=== PATIENT | female | born 1935 | race Caucasian/White ===

== ENCOUNTER 2021-08-04 08:43 | Inpatient (IN) ==
--- NOTE | 2021-08-04 08:56 | Emergency Department Note ---
History of Present Illness General Chief complaint: Stroke Alert Stated complaint: STROKE ALERT Source: EMS Mode of arrival: EMS Limitations: physical limitation (CVA) History of Present Illness Provider complaint: stroke alert This is an 86-year-old female brought in by EMS as a stroke alert. EMS reports patient's last known well was at 7 AM per family report to them. They noticed patient with slight right-sided weakness, difficulty ambulating, right facial droop and abnormal answers to questions. Patient with a prior history of a hemorrhagic stroke 5 years ago. EMS states in route patient symptoms have i mproved although she is not completely resolved. Per stroke protocol, patient taken immediately for CT imaging. Pt seen during a time of high acuity and national emergency pandemic while wearing PPE. Home Medications Medication Instructions Recorded Confirmed Type Aspir-81 81 mg PO DAILY 08/04/21 08/04/21 History Fish Oil 1 cap PO DAILY 08/04/21 08/04/21 History lisinopril 40 mg tablet 40 mg PO QAM 08/04/21 08/04/21 History metoprolol succinate 100 mg 100 mg PO QPM 08/04/21 08/04/21 History tablet,extended release 24 hr Allergies Allergy/AdvReac Type Severity Reaction Status Date / Time No Known Allergies Allergy Unverified 08/04/21 10:32 Past Med/Surg History Medical History (Updated 08/04/21 @ 21:03 by Patricia Brown DO) Hemorrhagic stroke Social History Smoking Status: Never smoker Preferred Language: Ethiopian Feels Safe at Home: Yes Review of Systems A total of 10 systems reviewed and were otherwise negative All systems reviewed & are unremarkable except as noted in HPI & below Physical Exam Vital Signs Vital Signs - 24 hr 08/04/21 08:24 08/04/21 09:24 08/04/21 09:30 Temperature 36.7 C Temperature Source Oral Pulse Rate 74 76 75 Pulse Rate from SpO2 Sensor 76 75 Pulse Rhythm Regular Pulse Strength Normal Respiratory Rate 18 18 22 Respiratory Effort / Characteristics Non-Labored Spontaneous Respiratory Depth Normal Respiratory Pattern Regular Blood Pressure 176/94 H Blood Pressure Mean 121 Blood Pressure Position Sitting Pulse Oximetry 96 95 94 Oxygen Delivery Method Room Air Sepsis Recent Fever Within 48 Hours No Sepsis New/Unexplained Change in Mental Status N/A Sepsis Action Taken by Nursing No Action Required 08/04/21 10:00 08/04/21 10:30 Temperature Temperature Source Pulse Rate 73 75 Pulse Rate from SpO2 Sensor 73 75 Pulse Rhythm Pulse Strength Respiratory Rate 15 17 Respiratory Effort / Characteristics Respiratory Depth Respiratory Pattern Blood Pressure Blood Pressure Mean Blood Pressure Position Pulse Oximetry 95 96 Oxygen Delivery Method Sepsis Recent Fever Within 48 Hours Sepsis New/Unexplained Change in Mental Status Sepsis Action Taken by Nursing GENERAL: alert, well appearing, well nourished, no distress, non-toxic EYE EXAM: normal conjunctiva, PERRL and EOM's grossly intact OROPHARYNX: no exudate, no erythema, lips, buccal mucosa, and tongue normal and mucous membranes are moist NECK: supple, no nuchal rigidity, no adenopathy, non-tender LUNGS: Clear to auscultation. Normal chest wall mechanics, no w/r/r HEART: no murmurs, S1 normal and S2 normal ABDOMEN: abdomen soft, non-tender, normo-active bowel sounds, no masses, no rebound or guarding. BACK: Back is symmetrical on inspection and there is no deformity, no midline tenderness, no CVA tenderness. SKIN: no rashes and no bruising UPPER EXTREMITIES: upper extremities are grossly normal. FROM, nml pulses b/l. LOWER EXTREMITIES: No pitting edema. FROM, nml pulses b/l. NEURO EXAM: Normal sensorium, cranial nerves II-XII grossly intact, no overt dysarthria, slight flattening yet or right nasolabial fold which medic states is improved, patient gives abnormal and repetitive answers to questions, no gross weakness of arms, no gross weakness of legs. No ataxia. Gross sensation intact. NIHSS 5. Course Course 00: Discussed with Dr. Brand, [place] [facility]. 09: Patient's daughter arrived at bedside. Confirms patient lives with her at home. Patient was up and about doing her normal routine in the morning when noticed at 7 AM that she had difficulty speaking, was giving abnormal and repetitive answers, had difficulty walking. They called 911 around 730 after calling the daughter. She confirms patient did have a small prior head bleed 4 to 5 years ago. Had full recovery and no ongoing deficits. She does not use any antiplatelet or anticoagulation therapy. 0909: Neurology now evaluating at bedside. Blood pressure is improved compared to prehospital. 09: Pt still being evaluated by neurology. Daughter at bedside. 28: After additional evaluation neurology states they feel this was most likely a TIA. He states had not seen her normal this morning to confirm and so he believes last known well was likely last night. Patient should be given an aspirin and otherwise admitted for additional monitoring and evaluation including an MRI. Patient symptoms have almost entirely resolved. This was discussed with the patient and daughter who are at bedside in addition. Patient states she did take her usual medications this morning at 6 AM. Administered Medications Sodium Chloride (Nss 1000ml) 1,000 mls @ 50 mls/hr IV .Q20H REPLACED BY [facility] Stop: 09/03/21 08:44 Last Admin: 08/04/21 09:26 Dose: 50 mls/hr Documented by: [id number] Lorazepam (Lorazepam 0.5 Mg Tab) 0.5 mg PO NOW ONE Stop: 08/04/21 21:01 Last Admin: 08/04/21 20:39 Dose: 0.5 mg Documented by: [id number] Metoprolol Succinate (Metoprolol Succ 50mg Ext Rel Tab) 100 mg PO QPM REPLACED BY [facility] Stop: 09/03/21 20:59 Last Admin: 08/04/21 20:39 Dose: 100 mg Documented by: [id number] Discontinued Medications Aspirin (Aspirin 325 Mg Ectab) 325 mg PO QAM REPLACED BY [facility] Stop: 09/03/21 09:29 Last Admin: 08/04/21 10:32 Dose: 325 mg Documented by: [id number] Ioversol (Optiray 320 125ml) 119 ml IV ONCE ONE Stop: 08/04/21 09:06 Last Admin: 08/04/21 09:06 Dose: 119 ml Documented by: [id number] Labetalol HCl (Labetalol Hcl Iv 5 Mg/Ml 20ml) 5 mg IV NOW STA Stop: 08/04/21 09:31 Last Admin: 08/04/21 10:16 Dose: 5 mg Documented by: [id number] Cosigned by: [id number] Labetalol HCl (Labetalol Hcl Iv 5 Mg/Ml 20ml) 10 mg IV NOW STA Stop: 08/04/21 11:04 Last Admin: 08/04/21 11:18 Dose: 10 mg Documented by: [id number] Cosigned by: [id number] Critical Care Time Critical Care Time: Yes Total Critical Care Time: 42 Critical care of 42 min performed to assess and manage high likelihood of life- threatening CVA, involving labs and imaging performed with assessment to evaluate 42 diagnosis with frequent reassessment. This time includes bedside time, treatment discussions with patient/family/consultants, documentation time and excludes procedure time. Medical Decision Making Differential Diagnosis Differential Diagnosis includes but is not limited to ischemic Stroke, hemorrhagic stroke, bells palsy, mass, neoplasm, migraine headache, seizure, subarachnoid hemorrhage, TIA, and transient global amnesia. Medical Records Attestation: I reviewed the patient's medical records. Home Medications Current Medication List: was personally reviewed by me Laboratory Data Attestation: I reviewed the patient's lab results. Result diagrams: 08/04/21 09:01 08/04/21 08:30 Lab Results 08/04/21 08/04/21 08/04/21 Range/Units 08:30 09:01 09:01 WBC 6.34 (4.8-10.8) K/uL RBC 4.54 (4.2-5.4) M/uL Hgb 14.7 (12.0-16.0) g/dL Hct 42.9 (37-47) % MCV 94.5 (80-100) fL MCH 32.4 (25-34) pg MCHC 34.3 (32-36) g/dL RDW Std Deviation 44.9 (36.4-46.3) fL RDW Coeff of Charline 13.0 (11.5-14.5) % Plt Count 200 (130-400) K/uL MPV 9.5 (7.4-10.4) fL Immature Gran % (Auto) 0.3 % Neut % (Auto) 60.6 % Lymph % (Auto) 26.5 % [place] % (Auto) 8.2 % Eos % (Auto) 3.6 % Baso % (Auto) 0.8 % Neut # (Auto) 3.84 (1.4-6.5) K/uL Lymph # (Auto) 1.68 (1.2-3.4) K/uL [place] # (Auto) 0.52 (0.11-0.59) K/uL Eos # (Auto) 0.23 (0-0.5) K/uL Baso # (Auto) 0.05 (0-0.2) K/uL Immature Gran # (Auto) 0.02 (0.00-0.02) K/uL PT 10.4 (9.0-12.0) Seconds INR 1.0 (0.9-1.1) APTT 22.8 (21.0-31.0) Seconds PTT Ratio 0.9 Sodium 138 (136-145) mmol/L Potassium 4.1 (3.5-5.1) mmol/L Chloride 104 (98-107) mmol/L Carbon Dioxide 25 (21-32) mmol/L Anion Gap 9.0 (3-11) BUN 20 H (7-18) mg/dl Creatinine 1.10 (0.6-1.2) mg/dl Est Cr Clr Drug Dosing 32.4 ml/min Est GFR ( Amer) 52.3 ml/min Est GFR (Non-Af Amer) 45.1 ml/min BUN/Creatinine Ratio 18.5 (10-20) Glucose 151 H (70-99) mg/dl POC Glucose (70-99) mg/dl Calcium 9.7 (8.5-10.1) mg/dl Magnesium 2.0 (1.8-2.4) mg/dl Total Bilirubin 0.9 (0.2-1) mg/dl AST 24 (15-37) U/L ALT 33 (12-78) U/L Alkaline Phosphatase 52 (45-117) U/L Troponin I < 0.015 (0-0.045) ng/ml Total Protein 7.6 (6.4-8.2) gm/dl Albumin 3.8 (3.4-5.0) gm/dl Globulin 3.8 (2.5-4.0) gm/dl Albumin/Globulin Ratio 1.0 (0.9-2) SARS-CoV-2, RNA, NAAT (NEGATIVE) 08/04/21 08/04/21 Range/Units 09:08 10:15 WBC (4.8-10.8) K/uL RBC (4.2-5.4) M/uL Hgb (12.0-16.0) g/dL Hct (37-47) % MCV (80-100) fL MCH (25-34) pg MCHC (32-36) g/dL RDW Std Deviation (36.4-46.3) fL RDW Coeff of Charline (11.5-14.5) % Plt Count (130-400) K/uL MPV (7.4-10.4) fL Immature Gran % (Auto) % Neut % (Auto) % Lymph % (Auto) % [place] % (Auto) % Eos % (Auto) % Baso % (Auto) % Neut # (Auto) (1.4-6.5) K/uL Lymph # (Auto) (1.2-3.4) K/uL [place] # (Auto) (0.11-0.59) K/uL Eos # (Auto) (0-0.5) K/uL Baso # (Auto) (0-0.2) K/uL Immature Gran # (Auto) (0.00-0.02) K/uL PT (9.0-12.0) Seconds INR (0.9-1.1) APTT (21.0-31.0) Seconds PTT Ratio Sodium (136-145) mmol/L Potassium (3.5-5.1) mmol/L Chloride (98-107) mmol/L Carbon Dioxide (21-32) mmol/L Anion Gap (3-11) BUN (7-18) mg/dl Creatinine (0.6-1.2) mg/dl Est Cr Clr Drug Dosing ml/min Est GFR ( Amer) ml/min Est GFR (Non-Af Amer) ml/min BUN/Creatinine Ratio (10-20) Glucose (70-99) mg/dl POC Glucose 162 H (70-99) mg/dl Calcium (8.5-10.1) mg/dl Magnesium (1.8-2.4) mg/dl Total Bilirubin (0.2-1) mg/dl AST (15-37) U/L ALT (12-78) U/L Alkaline Phosphatase (45-117) U/L Troponin I (0-0.045) ng/ml Total Protein (6.4-8.2) gm/dl Albumin (3.4-5.0) gm/dl Globulin (2.5-4.0) gm/dl Albumin/Globulin Ratio (0.9-2) SARS-CoV-2, RNA, NAAT NEGATIVE (NEGATIVE) Imaging Data Radiologist's Impression: Chest X-Ray 08/04/21 08:39 XR chest 1V portable CLINICAL HISTORY: Stroke Like Symptoms. Evaluate cardiopulmonary status COMPARISON STUDY: No previous studies for comparison. TECHNIQUE: 1 view of the chest FINDINGS: Single frontal view of the chest demonstrates the cardiomediastinal silhouette to be within normal limits. There is a decreased inspiratory effort with elevation of the hemidiaphragms and crowding of the bronchovascular markings at the lung bases and centrally. The lungs are clear of alveolar opacities. There is no evidence for pleural effusion. There is no evidence for vascular congestion. There is no acute osseous pathology. IMPRESSION: There is a decreased inspiratory effort with otherwise no acute chest disease. ACT 112: Negative or not required by law. Electronically signed by: Girma Higginbotham M.D. 08/04/2021 9:[address] 08/04/21 08:39 CT head/brain wo con CLINICAL HISTORY: Stroke Like Symptoms . Patient unable to give history COMPARISON STUDY: No previous studies for comparison. TECHNIQUE: Standard CT of the Brain was performed without IV contrast. A dose lowering technique was utilized adhering to the principles of ALARA. FINDINGS: Extraaxial space: There is no evidence for subdural hematoma. There are no extra-axial fluid collections. Ventricles and cisterns: The ventricles are mildly dilated bilaterally. There is no evidence for midline shift or mass effect. Parenchyma: There is no subarachnoid or intraparenchymal hemorrhage. There is no evidence for an acute infarct or cerebral edema. There is mild cerebral cortical atrophy and decreased attenuation in the periventricular white matter representing remote small vessel disease. There are no gross mass lesions. Osseous structures: There is no evidence for an acute fracture. The visualized paranasal sinuses are clear. The mastoid air cells are clear bilaterally. Soft tissues: There is no evidence for focal soft tissue swelling. IMPRESSION: No acute intracerebral pathology. Cerebral cortical atrophy and remote small vessel disease. ACT 112: Negative or not required by law. Electronically signed by: Girma Higginbotham M.D. 08/04/2021 9:09 AM Head CTA 08/04/21 08:39 CT angio head w con CLINICAL HISTORY: Stroke Like Symptoms . Patient unable to give history COMPARISON STUDY: CT brain without contrast 08/04/2021 CT DOSE: 1159.90 mGy.cm TECHNIQUE: CT Angio of the brain was performed.followed by image post processing with coronal, and sagittal MIP reformats. Contrast Volume: Optiray 320, 119 ml FINDINGS: Vascular findings: There is normal enhancement within the internal carotid arteries bilaterally. There is normal enhancement noted within the anterior, middle and posterior cerebral arteries. Nonvascular findings: There is homogeneous attenuation of the brain parenchyma bilaterally. There is no evidence for an acute infarct or cerebral edema. IMPRESSION: Negative CT angiogram of the brain with contrast. ACT 112: Negative or not required by law. Electronically signed by: Girma Higginbotham M.D. 08/04/2021 9:12 AM Neck CTA 08/04/21 08:39 CT angio neck with con CLINICAL HISTORY: Stroke Like Symptoms . Patient unable to provide history COMPARISON STUDY: No previous studies for comparison. TECHNIQUE: CT Angio of the neck was performed.followed by image post processing with coronal, and sagittal MIP reformats.. Stenosis assessment by NASCET criteria. Contrast Volume: Optiray 320, 119 ml FINDINGS: Vascular findings: Right common carotid artery: Patent without significant stenosis. There is mild atherosclerotic plaque present involving the carotid bulb with less than 50% stenosis. Right internal carotid artery: Patent without significant stenosis. Right vertebral artery: Patent without significant stenosis. The right vertebral artery is dominant when compared to the left. Left common carotid artery: Patent without significant stenosis. There is mild atherosclerotic plaque present at the carotid bulb with less than 50% stenosis present. Left internal carotid artery: Patent without significant stenosis. Left vertebral artery: Patent without significant stenosis. Nonvascular findings: The parotid and submandibular salivary glands appear normal. There is no enlarged cervical adenopathy noted. The airway appears patent. The thyroid gland appears within normal limits. The lung apices appear within normal limits. Impression: Essentially negative CT angiogram of the neck with contrast. ACT 112: Negative or not required by law. Electronically signed by: Girma Higignbotham M.D. 08/04/2021 9:16 AM ECG Data Attestation: I personally reviewed and interpreted this ECG as follows: Indication: + other Rate (beats per minute): 71 Rhythm: + normal sinus ECG Intervals/blocks: + Normal QRS and + Normal QT ECG [place]: + Left axis deviation ECG ST segments: + Normal ST segments MDM Narrative This is an 86 yo who presents as a stroke alert from EMS. Pt taken right to CT and brief performed en route. [place] [facility] contacted. VS stable and BP improved compared to prehospital which were markedly elevated per medic report. Patient with improving symptoms per their report also. CT and CTA reassuring. [place] [facility] did video evaluation and recommended. Patient given labetolol IV x 2 with improvement. Labs reassuring, mild hyperglycemia noted. Patient with near complete resolution of symptoms. Per neuro rec, pt given asa following her dysphagia screen. Patient not a candidate for tPA given prior ICH and time of onset ultimately unclear given last known well was last night at bedtime. Mild hyperglycemia noted, no evidence of DKA. An order was placed for continuous cardiac monitoring. The monitor shows a rate of __88_ with _normal sinus_ rhythm. Impression & Plan Transient cerebral ischemia, HTN (hypertension), Hyperlipidemia Discharge Plan Visit Data Chief Complaint: Stroke Alert Stated Complaint: STROKE ALERT ED Provider: Patricia Brown Discharge Problem: Transient cerebral ischemia, HTN (hypertension), Hyperlipidemia Discharge Instructions Interventions: ED Discharge Assessment Last Done: 08/04/21 15:51 Discharge Problem: Transient cerebral ischemia Qualifiers: Transient cerebral ischemia type: unspecified Qualified Code(s): G45.9 - Transient cerebral ischemic attack, unspecified HTN (hypertension) Qualifiers: Hypertension type: primary hypertension Qualified Code(s): I10 - Essential (primary) hypertension Hyperlipidemia Qualifiers: Hyperlipidemia type: unspecified Qualified Code(s): E78.5 - Hyperlipidemia, unspecified
[2021-08-04] MEDS ORDERED: OPTIRAY 320 125ml IV ONE (09:05)
[2021-08-04 09:07] LABS: Basophils # (auto) 0.05 K/uL (0-0.2); Basophils % (auto) 0.8 %; Eosinophils # (auto) 0.23 K/uL (0-0.5); Eosinophils % (auto) 3.6 %; Hematocrit (blood only) 42.9 % (37-47); Hemoglobin 14.7 g/dL (12.0-16.0); Immature Granulocytes # (auto) 0.02 K/uL (0.00-0.02); Immature Granulocytes % (auto) 0.3 %; Lymphocytes # (auto) 1.68 K/uL (1.2-3.4); Lymphocytes % (auto) 26.5 %; Mean Corpuscular Hemoglobin 32.4 pg (25-34); Mean Corpuscular Hgb Conc 34.3 g/dL (32-36); Mean Corpuscular Volume 94.5 fL (80-100); Mean Platelet Volume 9.5 fL (7.4-10.4); Monocytes # (auto) 0.52 K/uL (0.11-0.59); Monocytes % (auto) 8.2 %; Neutrophils # (auto) 3.84 K/uL (1.4-6.5); Neutrophils % (auto) 60.6 %; Platelet Count 200 K/uL (130-400); RDW Standard Deviation 44.9 fL (36.4-46.3); Red Blood Count 4.54 M/uL (4.2-5.4); White Blood Count 6.34 K/uL (4.8-10.8)
--- NOTE | 2021-08-04 09:11 | CT Scan Report ---
CT head/brain wo con CLINICAL HISTORY: Stroke Like Symptoms . Patient unable to give history COMPARISON STUDY: No previous studies for comparison. TECHNIQUE: Standard CT of the Brain was performed without IV contrast. A dose lowering technique was utilized adhering to the principles of ALARA. FINDINGS: Extraaxial space: There is no evidence for subdural hematoma. There are no extra-axial fluid collecti ons. Ventricles and cisterns: The ventricles are mildly dilated bilaterally. There is no evidence for mid line shift or mass effect. Parenchyma: There is no subarachnoid or intraparenchymal hemorrhage. There is no evidence for an acu te infarct or cerebral edema. There is mild cerebral cortical atrophy and decreased attenuation in th e periventricular white matter representing remote small vessel disease. There are no gross mass lesi ons. Osseous structures: There is no evidence for an acute fracture. The visualized paranasal sinuses are clear. The mastoid air cells are clear bilaterally. Soft tissues: There is no evidence for focal soft tissue swelling. IMPRESSION: No acute intracerebral pathology. Cerebral cortical atrophy and remote small vessel disea se. ACT 112: Negative or not required by law. Electronically signed by: Girma Higginbotham M.D. 08/04/2021 9:09 AM
--- NOTE | 2021-08-04 09:11 | XRay Report ---
XR chest 1V portable CLINICAL HISTORY: Stroke Like Symptoms. Evaluate cardiopulmonary status COMPARISON STUDY: No previous studies for comparison. TECHNIQUE: 1 view of the chest FINDINGS: Single frontal view of the chest demonstrates the cardiomediastinal silhouette to be within normal li mits. There is a decreased inspiratory effort with elevation of the hemidiaphragms and crowding of th e bronchovascular markings at the lung bases and centrally. The lungs are clear of alveolar opacities . There is no evidence for pleural effusion. There is no evidence for vascular congestion. There is n o acute osseous pathology. IMPRESSION: There is a decreased inspiratory effort with otherwise no acute chest disease. ACT 112: Negative or not required by law. Electronically signed by: Girma Higginbotham M.D. 08/04/2021 9:10 AM
--- NOTE | 2021-08-04 09:14 | CT Scan Report ---
CT angio head w con CLINICAL HISTORY: Stroke Like Symptoms . Patient unable to give history COMPARISON STUDY: CT brain without contrast 08/04/2021 CT DOSE: 1159.90 mGy.cm TECHNIQUE: CT Angio of the brain was performed.followed by image post processing with coronal, and s agittal MIP reformats. Contrast Volume: Optiray 320, 119 ml FINDINGS: Vascular findings: There is normal enhancement within the internal carotid arteries bilaterally. The re is normal enhancement noted within the anterior, middle and posterior cerebral arteries. Nonvascular findings: There is homogeneous attenuation of the brain parenchyma bilaterally. There is no evidence for an acute infarct or cerebral edema. IMPRESSION: Negative CT angiogram of the brain with contrast. ACT 112: Negative or not required by law. Electronically signed by: Girma Higginbotham M.D. 08/04/2021 9:12 AM
--- NOTE | 2021-08-04 09:17 | CT Scan Report ---
CT angio neck with con CLINICAL HISTORY: Stroke Like Symptoms . Patient unable to provide history COMPARISON STUDY: No previous studies for comparison. TECHNIQUE: CT Angio of the neck was performed.followed by image post processing with coronal, and sa gittal MIP reformats.. Stenosis assessment by NASCET criteria. Contrast Volume: Optiray 320, 119 ml FINDINGS: Vascular findings: Right common carotid artery: Patent without significant stenosis. There is mild atherosclerotic plaqu e present involving the carotid bulb with less than 50% stenosis. Right internal carotid artery: Patent without significant stenosis. Right vertebral artery: Patent without significant stenosis. The right vertebral artery is dominant w hen compared to the left. Left common carotid artery: Patent without significant stenosis. There is mild atherosclerotic plaque present at the carotid bulb with less than 50% stenosis present. Left internal carotid artery: Patent without significant stenosis. Left vertebral artery: Patent without significant stenosis. Nonvascular findings: The parotid and submandibular salivary glands appear normal. There is no enlarged cervical adenopathy noted. The airway appears patent. The thyroid gland appears within normal limits. The lung apices ap pear within normal limits. Impression: Essentially negative CT angiogram of the neck with contrast. ACT 112: Negative or not required by law. Electronically signed by: Girma Higginbotham M.D. 08/04/2021 9:16 AM
[2021-08-04 09:19] LABS: Partial Thromboplastin Ratio 0.9; Partial Thromboplastin Time 22.8 Seconds (21.0-31.0); Prothrombin Time 10.4 Seconds (9.0-12.0)
[2021-08-04 09:24] LABS: Alanine Aminotransferase 33 U/L (12-78); Albumin Level 3.8 gm/dl (3.4-5.0); Aspartate Aminotransferase 24 U/L (15-37); BUN Creatinine Ratio 18.5 (10-20); Blood Urea Nitrogen 20 mg/dl (7-18); Calcium 9.7 mg/dl (8.5-10.1); Carbon Dioxide 25 mmol/L (21-32); Chloride 104 mmol/L (98-107); Creatinine Clr Calc Pharmacy 32.4 ml/min; Est GFR (African American) 52.3 ml/min; Est GFR (Non-African American) 45.1 ml/min; Glucose 151 mg/dl (70-99); Potassium 4.1 mmol/L (3.5-5.1); Sodium 138 mmol/L (136-145)
[2021-08-04] MEDS: SODIUM CHLORIDE 0.9% 1000ML 1,000 ML IV SCH (09:26)
[2021-08-04 09:29] LABS: Alkaline Phosphatase 52 U/L (45-117); Bilirubin,Total 0.9 mg/dl (0.2-1); Globulin 3.8 gm/dl (2.5-4.0); Total Protein 7.6 gm/dl (6.4-8.2); Troponin I < 0.015 ng/ml (0-0.045)
[2021-08-04] MEDS ORDERED: ASPIRIN 325 MG ECTAB PO SCH (09:30)
[2021-08-04] MEDS ORDERED: LABETALOL HCL IV 5 MG/ML 20ML IV STA ×2 (09:30→11:03)
--- NOTE | 2021-08-04 10:39 | Electrocardiogram Report ---
Test Reason : Blood Pressure : / mmHG Vent. Rate : 071 BPM Atrial Rate : 071 BPM P-R Int : 180 ms QRS Dur : 116 ms QT Int : 436 ms P-R-T Axes : 063 -53 040 degrees QTc Int : 473 ms Normal sinus rhythm Left anterior fascicular block Left ventricular hypertrophy with QRS widening Poor R wave progression, consider anterior [place] vs. lead placement vs. LVH Abnormal ECG No previous ECGs available Confirmed by Shlomo Gutierrez ([id number]) on 08/04/2021 10:38:56 AM Referred By: REFERRED SELF Confirmed By:Ernesto Gutierrez
--- NOTE | 2021-08-04 10:50 | History & Physical Report ---
Date of Service August 04, 2021 Assessment & Plan (1) Right sided weakness: Plan: -Admit to med telemetry -Stroke order set completed - pt initially presented with GRETEL Racheal LE weakness, slurred speech, now nearly resolved. -Check A1c and lipid panel with a.m. labs for completeness -Neurology consulted, Dr. Fofana -Patient on baby aspirin at baseline, discussed with neurology regarding addition of Plavix -CT of the head and CTA are essentially negative, MRI/MRA pending -Allow for permissive hypertension, patient was given IV dose of labetalol, 5 mg IV and 10 mg IV, in the ER due to systolic blood pressure of 220, remains elevated during my visit -Continue lisinopril 40 qam, and metoprolol 100 mg Qpm - she did take morning medications -Speech therapy consulted, allowed diet once passes bedside swallow eval - PT/OT consults - Can hold outpatient multivitamin and other vitamin supplementations including Vit E, Vit C, Vit D and fish oil - Glucose is elevated at 151, follow a1c, not diabetic (2) HTN (hypertension): Plan: - As above (3) HLD (hyperlipidemia): Plan: - Takes fish oil as outpatient, not on statin therapy - Follow am lipid panel DVT ppx: - teds, scds CODE: DNR/DNI Dispo: From home, likely to remain in the hospital x 1-2 days History of Present Illness Primary Care Provider: Federico Ratliff MD This is a 86 yo F with PMHx of HTN, osteoporosis, 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 She reports waking up at 5:45 AM and was able to get herself dressed out of bed and participate in daily exercises, she ate breakfast however at that point did not quite seem herself to her . They called her daughter who presented to their home and then EMS was called. Since being here in the ER her right-sided weakness and left arm and leg have nearly completely resolved, she is not slurring her speech anymore, and is able to answer all my questions. She denies acute complaints currently. PHx: Denies family hx of cardiac disease, stroke PSHx: Denies alcohol use or smoking, no ilicit drug use. Lives at home with her . Allergies Allergy/AdvReac Type Severity Reaction Status Date / Time No Known Allergies Allergy Unverified 08/04/21 10:32 Home Medications Medication Instructions Recorded Confirmed Type Aspir-81 81 mg PO DAILY 08/04/21 08/04/21 History Fish Oil 1 cap PO DAILY 08/04/21 08/04/21 History lisinopril 40 mg tablet 40 mg PO QAM 08/04/21 08/04/21 History metoprolol succinate 100 mg 100 mg PO QPM 08/04/21 08/04/21 History tablet,extended release 24 hr Past Med/Surg History Medical History (Updated 08/04/21 @ 21:03 by Patricia Brown DO) Hemorrhagic stroke Social History Smoking Status: Never smoker Preferred Language: Czech Feels Safe at Home: Yes Review of Systems Review of Systems: Constitutional: No fever, sweats or chills Eyes: No diplopia, no worsening or blurred vision ENT: normal hearing, no trouble swallowing Respiratory: No cough, sputum, dyspnea at rest or on exertion Cardiovascular: No chest pain, tightness or palpitations Abdomen: No pain, nausea, vomiting, diarrhea or constipation Musculoskeletal: No joint pain, calf pain, swelling Neurologic: No weakness, numbness/tingling, or balance problems Psychiatric: No anxiety or depression Skin: No rash or itch Physical Exam Physical Exam: General: awake, alert, no apparent distress Head: Normocephalic, atraumatic ENT: PERRL, EOMI, no pharyngeal exudate, mucous membranes moist Chest: Clear to auscultation, on room air, no adventitious breath sounds Cardiac: Regular rate and rhythm, no murmur, no JVD, normal peripheral pulses, good capillary refill Abdominal: NABS x 4 quadrants, soft, nondistended, nontender to palpation, no rebound or guarding Extremities: Normal inspection, no peripheral edema or erythema, calfs nontender to palpation Psych: Normal mood and affect Neuro: AAO x 3, strength intact bilaterally and rated 5/5, no pronator drift, able to participate in cerebellar exercises without difficulty, no motor deficits, speech is clear, no peripheral sensory deficits Results & Data Results & Data ([facility]) Vital Signs (Past 12 Hours) Vital Signs Temp Pulse Resp BP Pulse Ox 08/04/21 10:30 75 17 96 08/04/21 10:00 73 15 95 08/04/21 09:30 75 22 94 08/04/21 09:24 76 18 95 08/04/21 08:24 36.7 C 74 18 176/94 H 96 Diagnostic Findings Chest X-Ray 08/04/21 08:39 XR chest 1V portable CLINICAL HISTORY: Stroke Like Symptoms. Evaluate cardiopulmonary status COMPARISON STUDY: No previous studies for comparison. TECHNIQUE: 1 view of the chest FINDINGS: Single frontal view of the chest demonstrates the cardiomediastinal silhouette to be within normal limits. There is a decreased inspiratory effort with elevation of the hemidiaphragms and crowding of the bronchovascular markings at the lung bases and centrally. The lungs are clear of alveolar opacities. There is no evidence for pleural effusion. There is no evidence for vascular congestion. There is no acute osseous pathology. IMPRESSION: There is a decreased inspiratory effort with otherwise no acute chest disease. ACT 112: Negative or not required by law. Electronically signed by: Girma Higginbotham M.D. 08/04/2021 9:[address] 08/04/21 08:39 CT head/brain wo con CLINICAL HISTORY: Stroke Like Symptoms . Patient unable to give history COMPARISON STUDY: No previous studies for comparison. TECHNIQUE: Standard CT of the Brain was performed without IV contrast. A dose lowering technique was utilized adhering to the principles of ALARA. FINDINGS: Extraaxial space: There is no evidence for subdural hematoma. There are no extra-axial fluid collections. Ventricles and cisterns: The ventricles are mildly dilated bilaterally. There is no evidence for midline shift or mass effect. Parenchyma: There is no subarachnoid or intraparenchymal hemorrhage. There is no evidence for an acute infarct or cerebral edema. There is mild cerebral cortical atrophy and decreased attenuation in the periventricular white matter representing remote small vessel disease. There are no gross mass lesions. Osseous structures: There is no evidence for an acute fracture. The visualized paranasal sinuses are clear. The mastoid air cells are clear bilaterally. Soft tissues: There is no evidence for focal soft tissue swelling. IMPRESSION: No acute intracerebral pathology. Cerebral cortical atrophy and remote small vessel disease. ACT 112: Negative or not required by law. Electronically signed by: Girma Higginbotham M.D. 08/04/2021 9:09 AM Head CTA 08/04/21 08:39 CT angio head w con CLINICAL HISTORY: Stroke Like Symptoms . Patient unable to give history COMPARISON STUDY: CT brain without contrast 08/04/2021 CT DOSE: 1159.90 mGy.cm TECHNIQUE: CT Angio of the brain was performed.followed by image post processing with coronal, and sagittal MIP reformats. Contrast Volume: Optiray 320, 119 ml FINDINGS: Vascular findings: There is normal enhancement within the internal carotid arteries bilaterally. There is normal enhancement noted within the anterior, middle and posterior cerebral arteries. Nonvascular findings: There is homogeneous attenuation of the brain parenchyma bilaterally. There is no evidence for an acute infarct or cerebral edema. IMPRESSION: Negative CT angiogram of the brain with contrast. ACT 112: Negative or not required by law. Electronically signed by: Girma Higginbotham M.D. 08/04/2021 9:12 AM Neck CTA 08/04/21 08:39 CT angio neck with con CLINICAL HISTORY: Stroke Like Symptoms . Patient unable to provide history COMPARISON STUDY: No previous studies for comparison. TECHNIQUE: CT Angio of the neck was performed.followed by image post processing with coronal, and sagittal MIP reformats.. Stenosis assessment by NASCET criteria. Contrast Volume: Optiray 320, 119 ml FINDINGS: Vascular findings: Right common carotid artery: Patent without significant stenosis. There is mild atherosclerotic plaque present involving the carotid bulb with less than 50% sana nosis. Right internal carotid artery: Patent without significant stenosis. Right vertebral artery: Patent without significant stenosis. The right vertebral artery is dominant when compared to the left. Left common carotid artery: Patent without significant stenosis. There is mild atherosclerotic plaque present at the carotid bulb with less than 50% stenosis present. Left internal carotid artery: Patent without significant stenosis. Left vertebral artery: Patent without significant stenosis. Nonvascular findings: The parotid and submandibular salivary glands appear normal. There is no enlarged cervical adenopathy noted. The airway appears patent. The thyroid gland appears within normal limits. The lung apices appear within normal limits. Impression: Essentially negative CT angiogram of the neck with contrast. ACT 112: Negative or not required by law. Electronically signed by: Girma Higginbotham M.D. 08/04/2021 9:16 AM ECG Additional Comments: Vent. Rate : 071 BPM Atrial Rate : 071 BPM P-R Int : 180 ms QRS Dur : 116 ms QT Int : 436 ms P-R-T Axes : 063 -53 040 degrees QTc Int : 473 ms Normal sinus rhythm Left anterior fascicular block Left ventricular hypertrophy with QRS widening Poor R wave progression, consider anterior DE vs. lead placement vs. LVH Abnormal ECG No previous ECGs available Code Status & VTE Plan Code Status DNR/DNI - discussed with pt at bedside VTE Prophylaxis Plan VTE Prophylaxis will be ordered: Yes Supervising Physician Co-Signing Physician Notes Care coordinated with Darby Tristan PA-C. Agree with above note. Patient seen and examined. Please refer to her notes for full details. Vital signs reviewed. Physical exam: General exam: Alert and oriented. Not in acute distress. CVS: S1 and S2 heard, regular rate and rhythm, no murmurs. RS: Clear to auscultation, no wheezing or crackles. ABD: Soft, bowel sounds present, nontender, no distention. SHAKE FEEDER: Nonfocal. EXT: No edema, no erythema. Labs: Reviewed. Assessment and plan: 86Y f with hx of hemorragic CVA presents with right sided weakness and some dif ficukty speaking around 7 am today morning. Cuently her symptoms improved. Resting comfortably. No chest pain or sob. No headache. Hemodynamics stable. Acute CVA/TIA workup negative so far seen by neurology started on plavix. To cotinue aspirin and plavix for 3 weeks then to continue plavix follow lipid profile. may need to start on statin HTN continue home meds close monitor. Other diagnosis and plan of care as per Darby Tristan PA-C. Yaakov paredes MD.
--- NOTE | 2021-08-04 13:30 | Magnetic Resonance Report ---
MR brain wo con CLINICAL HISTORY: Episode of confusion this morning. Reported right-sided weakness.. COMPARISON STUDY: No previous studies for comparison. TECHNIQUE: Multiplanar multisequence images of the Brain were performed without IV contrast. Diffusi on weighted imaging and ADC mapping was also performed. FINDINGS: Extra-axial space: There is no evidence for a subdural hematoma, There are no extra-axial fluid aurora ections. Ventricles and cisterns: The ventricles are mildly dilated bilaterally. There is no evidence for mid line shift or mass effect. Parenchyma: There is no evidence for an acute hemorrhage or infarct. No acute diffusion abnormalities are noted on diffusion weighted imaging or ADC mapping. There is normal francis-white differentiation. There is mild cerebral cortical atrophy present. There is bright signal seen on FLAIR weighted seque nces within the centrum semiovale and periventricular white matter characteristic of remote small ves leatha disease. The sulci and gyri appear normal without effacement. The midline structures are unremark able. The posterior fossa structures appear normal. There is no evidence for mass lesion. Osseous structures: The paranasal sinuses are well aerated. The mastoid air cells are well aerated. Soft tissues: No focal soft tissue abnormalities are identified. IMPRESSION: No acute intracranial abnormalities. Mild cerebral cortical atrophy and remote small ves leatha disease. ACT 112: Negative or not required by law. Electronically signed by: Girma Higginbotham M.D. 08/04/2021 1:29 PM
[2021-08-04] MEDS ORDERED: ONDANSETRON INJ 2 MG/ML 2 ML VIAL IV PRN (14:47)
[2021-08-04] MEDS ORDERED: PHARMACIST DISCHARGE MED REC CONSULT PRN (14:47)
[2021-08-04] MEDS ORDERED: ACETAMINOPHEN 325 MG TAB PO PRN (14:47)
[2021-08-04] MEDS ORDERED: METOPROLOL TARTRATE 1 MG/ML VIAL IV PRN (15:02)
--- NOTE | 2021-08-04 15:24 | Neurology Consultation ---
Date of Consultation August 04, 2021 Assessment & Plan (1) Right sided weakness: 1. MRI brain no acute findings 2. CTA head/neck- no acute vascular findings 3. TTE- for cardiac issues 4. optimize HTN, HLD, DM LDL <70 consider patients age 5. PT/OT speech for discharge needs 6. continue aspirin 81 mg and start plavix 75 mg daily x 21 days then plavix for life 7. ZIO as outpatient neurology follow up 4-6 weeks Ramonita Woody PAC Supervising Physician Co-Signing Physician Notes I have seen and discussed above patient with Dr Ramonita Fofana, neurology. Patient seen and examined discussed with patient and obtained history. By report the patient had an episode that lasted probably less than 45 minutes. Patient is amnestic for part of the episode she indicates she felt unwell and had some difficulty following commands and speaking. She was noted to stare for quite a number of minutes where she would not follow commands. Eventually she could speak and speech was "" garbled but the daughter indicates that that did not mean it was dysarthric it sounds as if she possibly had word finding difficulty. She could follow some simple commands when she became a little more alert. She would not follow any commands with her left upper extremity although spontaneously she was able to use her left upper extremity extremities randomly i.e. she would scratch her head with her left arm. No facial droop was noted and they were able to walk her to a chair without any apparent left lower extremity weakness. No focal seizure activity was noted. The patient has no history of seizure. She did have the aforementioned reported hemorrhagic stroke in the past although her current gradient images do not appear to show any hemorrhage. She is otherwise been well recently. No headaches Patient is awake and alert speech spontaneous speech and language are normal affect appropriate no right left confusion is noted. Normal visual abebe facial symmetry no dysarthria motor 5 out of 5 normal light touch normal [id number] and [id number] no double simultaneous extinction TIA versus partial complex seizure plan continue vascular work-up including echo, patient should have a zio as an outpatient. Dual antiplatelet therapy for 3 weeks and then Plavix monotherapy. Good control of lipids blood pressure over time. The patient is very anxious to be discharged. I think if she has cardiac monitoring overnight and has an echo if it shows nothing of concern and then she can be discharged. An EEG can be scheduled as an outpatient. 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 She reports waking up at 5:45 AM and was able to get herself dressed out of bed and participate in daily exercises, she ate breakfast however at that point did not quite seem herself to her . They called her daughter came to their home and then EMS was called.Her daughter states she was awake but not alert to what was going on around her. She did start talking to her daughter before the EMS arrived. In the ER her right-sided weakness and left arm and leg have nearly completely resolved, she is not slurring her speech anymore, and is able to answer all questions. 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 She was taking a daily aspirin. Allergies Allergy/AdvReac Type Severity Reaction Status Date / Time No Known Allergies Allergy Unverified 08/04/21 10:32 Home Medications Medication Instructions Recorded Confirmed Type Aspir-81 81 mg PO DAILY 08/04/21 08/04/21 History Fish Oil 1 cap PO DAILY 08/04/21 08/04/21 History lisinopril 40 mg tablet 40 mg PO QAM 08/04/21 08/04/21 History metoprolol succinate 100 mg 100 mg PO QAM 08/04/21 08/04/21 History tablet,extended release 24 hr Patient History Medical History (Updated 08/04/21 @ 11:21 by Darby Tristan PA-C) Hemorrhagic stroke Social History Smoking Status: Never smoker Preferred Language: Nicaraguan Feels Safe at Home: Yes Review of Systems Review of Systems: All systems reviewed & are unremarkable except as noted in HPI & below Physical Exam Physical Exam: Physical Exam: Constitutional: appearance nourished, healthy Ears, Nose, Mouth and Throat: mucous membranes moist, no injection and skin normal, eyes normal Cardiovascular: normal S-1 and S-2 and regular rate and rhythm Respiratory: clear to auscultation (CTA) and no rales, ronchi or wheeze Musculoskeletal: no peripheral edema and good distal pulses Skin: no stigmata of neurocutaneous disease noted and normal and intact Eyes: extraocular muscles intact (EOMI) and pupils equal, round and reactive to light (PERRL) NEUROLOGIC EXAMINATION: Mental status: Alert and interactive Oriented to full date and location Oriented to person Speech fluent with no evidence of aphasia, knows president, 2020, Thanksjordin Kamara, no ifs ands or buts. Cranial Nerves smile eye brow raise symmetric Reflexes: Deep tendon reflexes were symmetrical and graded 2/5. GT proprioception intact Sensory: light cool touch Coordination: finger to nose Gait/Stance: Posture normal. Gait normal: with steady with steps, base, turning,tandem gait. Motor: Negative for pronator drift of out stretched arms with eyes closed. Strength: hand medical laboratory manager biceps triceps 5/5 bilaterally hip flex plantar flex ext 5/5 Results & Data ([facility]) Vital Signs (Past 12 Hours) Vital Signs Temp Pulse Pulse Resp BP BP Pulse Ox 08/04/21 13:30 85 18 161/92 H 95 08/04/21 10:30 75 17 96 08/04/21 10:00 73 15 95 08/04/21 09:30 75 22 94 08/04/21 09:24 76 18 95 08/04/21 08:24 36.7 C 74 18 176/94 H 96 Laboratory Results Abnormal lab results 08/04/21 08/04/21 Range/Units 08:30 09:08 BUN 20 H (7-18) mg/dl Glucose 151 H (70-99) mg/dl POC Glucose 162 H (70-99) mg/dl Diagnostic Findings CXR- here is a decreased inspiratory effort with otherwise no acute chest disease. CT head-No acute intracerebral pathology. Cerebral cortical atrophy and remote small vessel disease. CTA head-Negative CT angiogram of the brain with contrast. CTA neck-Essentially negative CT angiogram of the neck with contrast. MRI brain-No acute intracranial abnormalities. Mild cerebral cortical atrophy and remote small vessel disease.
--- NOTE | 2021-08-04 16:42 | Magnetic Resonance Report ---
MRA OF THE INTRACRANIAL CIRCULATION WITHOUT CONTRAST CLINICAL HISTORY: Right-sided weakness. COMPARISON STUDY: CTA of the head August 04, 2021 at 8:54 AM. TECHNIQUE: Utilizing a 1.5 Berna magnet and 3-D [id number]-[id number] technique, unenhanced MRA of the intra cranial circulation was obtained. FINDINGS: The bilateral M1, M2, A1 and A2 segments are patent. This exam is mildly compromised by art ifact. There is no central vessel occlusion. The right vertebral artery is dominant. The basilar letty ry is patent. persistence of the left posterior cerebral artery is noted. No intracranial aneur ysm is present. No severe stenoses are identified. There are mild multifocal stenoses. IMPRESSION: No central vessel occlusion. No intracranial aneurysm. ACT 112: Negative or not required by law. Electronically signed by: Navid Larkin M.D. 08/04/2021 4:40 PM
[2021-08-04] MEDS ORDERED: LORazepam 0.5 MG TAB PO ONE (21:00)
[2021-08-04] MEDS ORDERED: METOPROLOL SUCC 50MG EXT REL TAB PO SCH (21:00)
[2021-08-05] MEDS: SODIUM CHLORIDE 0.9% 1000ML 1,000 ML IV SCH (00:53)
[2021-08-05 07:53] LABS: Basophils # (auto) 0.03 K/uL (0-0.2); Basophils % (auto) 0.5 %; Eosinophils # (auto) 0.15 K/uL (0-0.5); Eosinophils % (auto) 2.4 %; Hematocrit (blood only) 40.3 % (37-47); Hemoglobin 13.6 g/dL (12.0-16.0); Immature Granulocytes # (auto) 0.01 K/uL (0.00-0.02); Immature Granulocytes % (auto) 0.2 %; Lymphocytes # (auto) 1.15 K/uL (1.2-3.4); Lymphocytes % (auto) 18.5 %; Mean Corpuscular Hemoglobin 32.1 pg (25-34); Mean Corpuscular Hgb Conc 33.7 g/dL (32-36); Monocytes % (auto) 4.8 %; Neutrophils # (auto) 4.58 K/uL (1.4-6.5); Neutrophils % (auto) 73.6 %; Platelet Count 183 K/uL (130-400); RDW Coefficient of Variation 13.2 % (11.5-14.5); RDW Standard Deviation 45.6 fL (36.4-46.3); Red Blood Count 4.24 M/uL (4.2-5.4); White Blood Count 6.22 K/uL (4.8-10.8)
[2021-08-05 08:16] LABS: Estimated Average Glucose 111 mg/dl; Hemoglobin A1C 5.5 % (4.5-5.6)
[2021-08-05 08:24] LABS: Albumin Level 3.2 gm/dl (3.4-5.0); BUN Creatinine Ratio 17.4 (10-20); Calcium 8.8 mg/dl (8.5-10.1); Creatinine Clr Calc Pharmacy 41.5 ml/min; Est GFR (African American) 70.4 ml/min; Est GFR (Non-African American) 60.7 ml/min; Potassium 3.9 mmol/L (3.5-5.1)
[2021-08-05 08:28] LABS: Albumin Globulin Ratio 0.9 (0.9-2); Bilirubin,Total 1.1 mg/dl (0.2-1); Globulin 3.4 gm/dl (2.5-4.0); Total Protein 6.6 gm/dl (6.4-8.2)
[2021-08-05] MEDS ORDERED: ATORVASTATIN 40 MG TAB PO SCH (09:00)
[2021-08-05] MEDS ORDERED: ASPIRIN 81 MG ECTAB PO SCH (09:00)
[2021-08-05] MEDS ORDERED: METOPROLOL SUCC 50MG EXT REL TAB PO SCH (09:00)
[2021-08-05] MEDS ORDERED: lisinopril 40 MG TAB PO SCH (09:00)
[2021-08-05] MEDS ORDERED: CLOPIDOGREL BISULFATE 75 MG TAB PO SCH (09:00)
--- NOTE | 2021-08-05 11:53 | Progress Notes ---
SUBJECTIVE: The patient is seen for a TIA versus seizure, favor TIA. She has had no recurrent events overnight. She has a mild nonbothersome vertex headache. Her echo has not yet been performed. OBJECTIVE: She is awake and alert. Her speech and language are normal. Her affect is appropriate. There is no facial asymmetry. Strength is grossly symmetric. There may be minimal decreased left r apid alternating movements. Lower extremity strength is full. IMPRESSION AND PLAN: Transient ischemic attack versus partial complex seizure. Continue risk factor modification, antiplatelet therapy as previously described. Recommend a good control of lipids and blood pressure over time. Zio patch as an outpatient, EEG as an outpatient. Please schedule a puja barrientos appointment with BIANCA Zacarias. Job ID: [id number]
--- NOTE | 2021-08-05 13:19 | Hospitalist Progress Note ---
Date of Service August 05, 2021 Assessment & Plan (1) Right sided weakness: Plan: Strokelike symptoms Likely TIA DD: Complex partial seizure --MRI Brain:No acute intracranial abnormalities. Mild cerebral cortical atrophy and remote small vessel disease. --Head CTA:Negative CT angiogram of the brain with contrast. --Neck CTA:Essentially negative CT angiogram of the neck with contrast. --MRA head:No central vessel occlusion. No intracranial aneurysm. -ECHO: Reviewed -Speech eval PT/OT eval Zio patch as outpatient EEG as outpatient Appreciate neurology input Needs follow-up with neurology upon discharge -Continue aspirin, Plavix for 21 days and then transition to Plavix alone for life Continue Lipitor (2) HTN (hypertension): Plan: -Continue current medication (3) HLD (hyperlipidemia): Plan: - Takes fish oil as outpatient -started on Lipitor DVT px: - teds, scds CODE STATUS: DNR/DNI Admission and Anticipated Discharge Date Admission Date: August 04, 2021 Subjective Patient is seen and examined at bedside States having minimal headache this morning Speech returned to baseline No facial asymmetry Denies any focal weakness Also denies any chest pain, dyspnea, dizziness, nausea, abdominal pain Review of Systems Review of Systems: All systems reviewed & are unremarkable except as noted in Subjective Physical Exam Physical Exam: Physical Exam: Vitals signs as noted above General Appearance:Moderately built and nourished, no apparent distress Head: normocephalic, Atraumatic Eyes: normal inspection, EOMI Neck: supple, Trachea midline Respiratory/Chest: Normal breath sounds, CTA Cardiovascular: S1, S2, No murmur Abdomen/GI:Soft, Non tender, Bowel sounds present Extremities/Musculoskeletal:normal inspection, no edema Neurologic/Psych:AAOX3, grossly no focal neurological deficits Skin: normal color, warm Results & Data Results & Data ([facility]) Vital Signs (Past 12 Hours) Vital Signs Temp Pulse Pulse Resp BP BP Pulse Ox 08/05/21 12:01 99 08/05/21 11:37 36.4 C L 70 18 167/85 H 94 08/05/21 07:00 36.5 C 69 18 169/79 H 93 08/05/21 06:20 71 08/05/21 04:25 36.7 C 73 18 198/85 H 93 Laboratory Results Short CBC 08/05/21 Range/Units 07:27 WBC 6.22 (4.8-10.8) K/uL Hgb 13.6 (12.0-16.0) g/dL Hct 40.3 (37-47) % Plt Count 183 (130-400) K/uL BMP 08/05/21 07:27 Sodium 137 Potassium 3.9 Chloride 105 Carbon Dioxide 24 BUN 15 Creatinine 0.86 Glucose 120 H Calcium 8.8 Liver Function 08/05/21 Range/Units 07:27 Total Bilirubin 1.1 H (0.2-1) mg/dl AST 21 (15-37) U/L ALT 29 (12-78) Alkaline Phosphatase 44 L (45-117) U/L Albumin 3.2 L (3.4-5.0) gm/dl (1) HTN (hypertension) Hypertension type: primary hypertension Qualified Code(s): I10 - Essential (primary) hypertension
[2021-08-05] MEDS ORDERED: STROKE PATIENT DISCHARGE STA (13:30)
--- NOTE | 2021-08-05 14:15 | Pharmacy Report ---
Pharmacist Stroke Counseling - Date of Service August 05, 2021 - Scope: Pharmacy has been consulted to provide medication discharge counseling for this patient admitted with [ischemic stroke] [hemorrhagic stroke] [transient ischemic attack] as per the Pharmacist Discharge Counseling for Stroke Patients Prot ocol. - Medications on Discharge: Home Medications Medication Instructions Recorded Confirmed Aspir-81 81 mg PO DAILY 08/04/21 08/04/21 Fish Oil 1 cap PO DAILY 08/04/21 08/04/21 lisinopril 40 mg tablet 40 mg PO QAM 08/04/21 08/04/21 metoprolol succinate 100 mg 100 mg PO QPM 08/04/21 08/04/21 tablet,extended release 24 hr New Rx's Medication Instructions Recorded atorvastatin 40 mg tablet 40 mg PO QAM #30 tab 08/05/21 clopidogrel 75 mg tablet 75 mg PO QAM #30 tab 08/05/21 - Action: The above medications, specifically ones for stroke treatment/prophylaxis, have been reviewed in detail with the patient and/or patient sales representative jewelry(s) prior to discharge. This includes indication, common adverse reactions, drug interactions, and medication administration. Medication counseling has been employed using the teach-back method to ensure understanding. - Outcome: The patient and/or patient sales representative jewelry(s) have demonstrated understanding of the medications. Additional comments: Spoke with patient over the phone regarding medication changes on discharge. She demonstrated understanding of changes. Is aware of plavix/aspirin combo x 3 weeks then plavix alone. All questions answered from patient. Thank you for allowing pharmacy to be involved in the care of this patient. Please call [phone] with any additional questions
--- NOTE | 2021-08-05 17:32 | Discharge Summary ---
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 She reports waking up at 5:45 AM and was able to get herself dressed out of bed and participate in daily exercises, she ate breakfast however at that point did not quite seem herself to her . They called her daughter who presented to their home and then EMS was called. Since being here in the ER her right-sided weakness and left arm and leg have nearly completely resolved, she is not slurring her speech anymore, and is able to answer all my questions. She denies acute complaints currently. Admission Exam Per Admitting Provider Physical Exam Physical Exam: General: awake, alert, no apparent distress Head: Normocephalic, atraumatic ENT: PERRL, EOMI, no pharyngeal exudate, mucous membranes moist Chest: Clear to auscultation, on room air, no adventitious breath sounds Cardiac: Regular rate and rhythm, no murmur, no JVD, normal peripheral pulses, good capillary refill Abdominal: NABS x 4 quadrants, soft, nondistended, nontender to palpation, no rebound or guarding Extremities: Normal inspection, no peripheral edema or erythema, calfs nontender to palpation Psych: Normal mood and affect Neuro: AAO x 3, strength intact bilaterally and rated 5/5, no pronator drift, able to participate in cerebellar exercises without difficulty, no motor deficits, speech is clear, no peripheral sensory deficits Principal Diagnosis Strokelike symptoms Transient ischemic attack DD: complex partial seizure Discharge Data Allergies Allergy/AdvReac Type Severity Reaction Status Date / Time No Known Allergies Allergy Unverified 08/04/21 10:32 Consultations 08/04/21 10:40 ED Decision to Admit Stat 08/04/21 14:47 Consult Neurology Routine Ordered Studies 08/04/21 08:39 CT angio head w con Stat CT angio neck with con Stat CT head/brain wo con Stat 08/04/21 10:46 MR brain wo con Stat 08/04/21 14:47 MR angio head wo con Urgent Hospital Course (1) Right sided weakness: Strokelike symptoms Likely TIA DD: Complex partial seizure --MRI Brain:No acute intracranial abnormalities. Mild cerebral cortical atrophy and remote small vessel disease. --Head CTA:Negative CT angiogram of the brain with contrast. --Neck CTA:Essentially negative CT angiogram of the neck with contrast. --MRA head:No central vessel occlusion. No intracranial aneurysm. -ECHO: Reviewed -Speech eval PT/OT eval Zio patch as outpatient EEG as outpatient Appreciate neurology input Needs follow-up with neurology upon discharge -Continue aspirin, Plavix for 21 days and then transition to Plavix alone for life Continue Lipitor (2) HTN (hypertension): -Continue current medication (3) HLD (hyperlipidemia): - Takes fish oil as outpatient -started on Lipitor DVT px: - teds, scds CODE STATUS: DNR/DNI Total Time Total Time Spent Total Time Spent (In Minutes): 40 minutes Discharge Plan Discharge Items Patient Disposition: Home - Self-Care Reason For Visit: CVA Discharge Diagnosis: Transient ischemic attack Activity: Per Instructions section Exercise/Sports: Gradually increase as tolerated Non-emergency contact: Primary Care Provider and Neurologist Call non-emergency contact if: you have any medication questions, your symptoms worsen, your pain is concerning for you and you have a fever Follow-up/Referrals: Federico Ratliff MD [Primary Care Provider] - Diet: Heart Healthy Addtl Attending Provider Instructions: Follow-up with your primary care physician Dr.Joseph Ratliff in 1 week Follow-up with your neurologist Dr. Ramonita Fofana/Ramonita Woody PA-C in 4 to 6 weeks next ----Continue Aspirin 81 mg and Plavix 75 mg daily for 3 weeks and then take Plavix 75 mg daily only for lifelong. (Stop taking Aspirin 81mg after 3 weeks). --- Get outpatient ZIO patch arranged as recommended by your neurologist to rule out arrhythmias. --- Obtain electroencephalogram as outpatient to rule out any seizure activity Seek immediate medical attention if your symptoms reoccur or worsen Please take all medications as instructed on discharge list below. Please call if you have any questions or problems. You can reach a [facility] [address] hospitalist on duty at [facility] 24 hours a day by calling [phone] Risk Factors for Stroke: You can reduce your chances of stroke by working with your medical provider to adopt a healthy lifestyle. Some specific ways to lower your chance of stroke are: * If you are a smoker, now is the time to stop smoking cigarettes * If you are diabetic, improve the control of your blood sugars * Avoid excessive amounts of alcohol * Control high blood pressure * Lose weight if you are overweight * Be sure to lead an active lifestyle * Eat a healthy diet low in salt, cholesterol and fat You should know about other risk factors for stroke that you are unable to control. These include: * Age 55 years or older * Male gender * Certain racial groups: , or / * Family History of Stroke, Mini stroke or Heart Attack * Sickle Cell Disease Follow Up: It is important for you to keep your follow up appointments with your medical provider. Who to Call and When: Medical Emergencies: Call 911 immediately if you experience any of the following warning signs and symptoms of Stroke: * Sudden numbness or weakness of the face, arm or leg, especially on one side of the body * Sudden confusion, trouble speaking or understanding * Sudden trouble seeing in one or both eyes * Sudden trouble walking, dizziness, loss of balance or coordination * Sudden severe headache with no cause Do not delay calling 911 if you experience any warning signs or symptoms of a stroke. Delay in seeking medical attention may affect what treatments can be given to you. . Pending Studies at Discharge: No Stand-Alone Forms: My [facility], Smoking Cessation Medications and DC Order Prescriptions: New atorvastatin 40 mg Tablet 40 mg PO QAM Qty: 30 RF: 2 clopidogrel 75 mg Tablet 75 mg PO QAM Qty: 30 RF: 2 Continued metoprolol succinate 100 mg tablet extended release 24 hr 100 mg PO QPM RF: 0 lisinopril 40 mg tablet 40 mg PO QAM RF: 0 Aspir-81 81 mg PO DAILY RF: 0 Fish Oil 1 cap PO DAILY RF: 0 Discharge Orders: Discharge Order (Routine); Ordered 08/05/21 Ordered By: Albert Westbrook Admission Data Admit Date/Time: 08/04/21 10:46 Attending Provider: Albert Westbrook Admit Provider: Yaakov Reyes Primary Care Provider: Federico Ratliff Other Providers: Leeroy Hickman ; Ramonita Fofana Other Interventions: Discharge Summary Assessment (RN) Last Done: 08/05/21 13:49
== END 2021-08-05 15:00 | disposition home or self-care (01) | DRG 69 ==
LOC: ED 08:43 → SUATTDRO 10:46 → EDINP 10:46 → 2N 15:51